=== PATIENT | female | born 1970 | race Hispanic/Latino ===

== ENCOUNTER → 2017-03-24 | Outpatient (CLI) | payer OTHER ==
--- NOTE | 2017-03-27 15:48 | Diagnostic Imaging Report ---
#[id number] - [id number] #BILATERAL DIGITAL SCREENING MAMMOGRAM WITH CAD: 03/24/2017 CLINICAL: Routine screening. Comparison is made to exams dated: 03/07/2016 mammogram, 02/26/2015 mammogram and 02/17/2014 mammogram - [facility]. Current study contains 4 films. The tissue of both breasts is extremely dense, which lowers the sensitivity of mammography. Current study was also evaluated with a Computer Aided Detection (CAD) system. There is an amorphous calcification in the left breast at 2 o'clock middle depth that appears new. No other significant masses, calcifications, or other findings are seen in either breast. IMPRESSION: INCOMPLETE: NEEDS ADDITIONAL IMAGING EVALUATION The amorphous calcification in the left breast is indeterminate. Spot magnification views are recommended. The patient will be contacted by the Mammography Department to schedule this appointment. Zachary Godinez Jr., D.O. cw/:03/27/2017 10:00:55 Hospice Coordinator: Vania BURDEN(R)(M), [facility] letter sent: Additional Imaging Needed Mammogram BI-RADS: 0 Indeterminate
== END ==
LOC: MAMMO 13:41
PROVIDERS: ATTEND Obstetrics & Gynecology
DX: Z12.31 Encounter for screening mammogram for malignant neoplasm of breast (principal)
CPT/HCPCS: 77067

== ENCOUNTER → 2017-04-10 | Outpatient (CLI) | payer OTHER ==
--- NOTE | 2017-04-11 08:25 | Diagnostic Imaging Report ---
#[id number] - [id number] #UNILATERAL LEFT DIGITAL DIAGNOSTIC MAMMOGRAM WITH CAD: 04/10/2017 Comparison is made to exams dated: 03/24/2017 mammogram, 03/07/2016 mammogram and 02/26/2015 mammogram - [facility]. Current study contains 3 films. The tissue of the left breast is extremely dense, which lowers the sensitivity of mammography. Current study was also evaluated with a Computer Aided Detection (CAD) system. There is a heterogeneous calcification in the left breast at 2 o'clock anterior depth. This calcification is new compared to the 03/07/2016 study. Since this is new a stereotactic biopsy is recommended. Due to equipement issues, biopsy should be performed at an outside institution with a prone table and a petit vacuum assisted needle (neither currently available here). A second area of faint calcification is noted more posterior to these discrete calcifications. No other significant masses or calcifications are seen in the breast. IMPRESSION: SUSPICIOUS OF MALIGNANCY The heterogeneous calcification in the left breast is suspicious of malignancy. A stereotactic biopsy is recommended. Follow-up with ACR/ACS guidelines. A phone call was made to the physician and the case discussed. The patient was notified of the need for a biopsy. Zachary Godinez Jr., D.O. cw/:04/10/2017 15:07:51 Human Resources Analyst: Vania FERNANDEZ)(Pamela), [facility] letter sent: Biopsy Required Mammogram BI-RADS: 4 Suspicious abnormality
== END ==
LOC: MAMMO 12:52
PROVIDERS: ATTEND Obstetrics & Gynecology
DX: N64.59 Other signs and symptoms in breast (principal)